=== PATIENT | female | born 1950 | race Caucasian/White ===

== ENCOUNTER 2016-07-26 10:24 | Outpatient (CLI) ==
[2014-09-29 16:18] VITALS: BMI 31.6
[2016-07-26 13:49] LABS: BASOPHILS % (AUTO) 0.5 % (0.0-3.0); EOSINOPHILS # (AUTO) 0.5 K/ul (0.0-0.7); HEMATOCRIT 39.9 % (37.0-47.0); HEMOGLOBIN 12.9 g/dl (12.0-16.0); IMMATURE GRANULOCYTE % (AUTO) 0.1 % (0.0-5.0); LYMPHOCYTES # (AUTO) 3.3 K/uL (0.60-3.4); LYMPHOCYTES % (AUTO) 40.4 (10.0-50.0); MEAN CORPUSCULAR HEMOGLOBIN 28.4 pg (27.0-31.0); MEAN CORPUSCULAR HGB CONC 32.3 (31.8-35.4); MEAN CORPUSCULAR VOLUME 87.7 fl (81.0-99.0); MONOCYTES # (AUTO) 0.6 K/uL (0.4-2.0); MONOCYTES % (AUTO) 7.2 (0-10); NEUTROPHILS # (AUTO) 3.7 K/ul (2.0-6.9); NEUTROPHILS % (AUTO) 45.8; PLATELET COUNT 336 10^3/uL (140-440); RED BLOOD COUNT 4.55 10^6/ul (4.20-5.40); WHITE BLOOD COUNT 8.17 K/ul (4.6-10.2)
[2016-07-26 14:04] LABS: BILIRUBIN,URINE Negative (NEGATIVE); KETONES,URINE Negative (NEGATIVE); LEUKOCYTE ESTERASE ,URINE Negative (NEGATIVE); NITRITE,URINE Negative (NEGATIVE); PROTEIN,URINE Negative (NEGATIVE); URINE, BLOOD Negative (NEGATIVE)
[2016-07-26 14:05] LABS: ALBUMIN 3.3 g/dL (3.4-5.0); ALBUMIN/GLOBULIN RATIO 0.77; ANION GAP 14.2; BILIRUBIN,TOTAL 0.26 mg/dL (0.00-1.20); BUN/CREATININE RATIO 32.95; CALCIUM 9.7 mg/dL (8.2-10.2); CHOL/HDL RATIO 3.1 (4.5-5.5); CREATININE 0.88 mg/dL (0.60-1.30); POTASSIUM 4.2 mmol/L (3.5-5.10); TOTAL PROTEIN 7.6 g/dL (5.8-8.1)
[2016-07-26 14:17] LABS: ADD URINE MICROSCOPIC NO
== END 2016-07-26 10:25 | disposition home or self-care (01) ==
LOC: LAB 10:24
PROVIDERS: ATTEND General Practice
DX: E10.51 Type 1 diabetes mellitus with diabetic peripheral angiopathy without gangrene (principal); E10.69 Type 1 diabetes mellitus with other specified complication; I10 Essential (primary) hypertension; Z78.9 Other specified health status; Z79.899 Other long term (current) drug therapy
CPT/HCPCS: 36415; 80053; 80061; 81001; 83036; 85025

== ENCOUNTER 2016-08-05 13:38 | Outpatient (CLI) ==
[2014-09-29 16:18] VITALS: BMI 31.6
--- NOTE | 2016-08-08 08:47 | MAMMO ---
EXAM: Bilateral digital screening mammogram History: Screening Comparison: Bilateral mammogram 08/03/2015 Findings: MLO and CC views of bilateral breasts demonstrate predominately fatty replaced breast par enchyma. Stable benign bilateral vascular calcifications. There are no dominant masses, no suspici ous microcalcifications and no architectural distortions Impression: Benign stable mammogram. Recommend followup routine screening mammography in 1 year. BIRADS 2
== END 2016-08-05 13:39 | disposition home or self-care (01) ==
LOC: RAD 13:38
PROVIDERS: ATTEND General Practice
DX: Z12.31 Encounter for screening mammogram for malignant neoplasm of breast (principal)

== ENCOUNTER 2016-10-21 11:05 | Outpatient (CLI) ==
[2014-09-29 16:18] VITALS: BMI 31.6
[2016-10-21 13:09] LABS: BASOPHILS # (AUTO) 0.1 K/uL (0-0.2); BASOPHILS % (AUTO) 0.8 % (0.0-3.0); EOSINOPHILS # (AUTO) 0.4 K/ul (0.0-0.7); HEMATOCRIT 39.8 % (37.0-47.0); HEMOGLOBIN 12.9 g/dl (12.0-16.0); IMMATURE GRANULOCYTE % (AUTO) 0.3 % (0.0-5.0); LYMPHOCYTES # (AUTO) 3.3 K/uL (0.60-3.4); LYMPHOCYTES % (AUTO) 41.4 (10.0-50.0); MEAN CORPUSCULAR HEMOGLOBIN 28.3 pg (27.0-31.0); MEAN CORPUSCULAR HGB CONC 32.4 (31.8-35.4); MEAN CORPUSCULAR VOLUME 87.3 fl (81.0-99.0); MONOCYTES # (AUTO) 0.5 K/uL (0.4-2.0); MONOCYTES % (AUTO) 6.3 (0-10); NEUTROPHILS # (AUTO) 3.7 K/ul (2.0-6.9); NEUTROPHILS % (AUTO) 46.2; PLATELET COUNT 322 10^3/uL (140-440); RED BLOOD COUNT 4.56 10^6/ul (4.20-5.40); WHITE BLOOD COUNT 7.94 K/ul (4.6-10.2)
[2016-10-21 13:11] LABS: BILIRUBIN,URINE Negative (NEGATIVE); KETONES,URINE Negative (NEGATIVE); LEUKOCYTE ESTERASE ,URINE Negative (NEGATIVE); NITRITE,URINE Negative (NEGATIVE); PH,URINE 5.5 (5-9); PROTEIN,URINE 2+ (NEGATIVE); URINE, BLOOD Negative (NEGATIVE)
[2016-10-21 13:25] LABS: ADD URINE MICROSCOPIC YES
[2016-10-21 13:26] LABS: BACTERIA,URINE TRACE (NOT PRESENT)
[2016-10-21 13:27] LABS: GRANULAR CASTS,URINE 0-2 (NOT PRESENT)
[2016-10-21 13:33] LABS: ALBUMIN 3.2 g/dL (3.4-5.0); ALBUMIN/GLOBULIN RATIO 0.76; ANION GAP 15.2; BILIRUBIN,TOTAL 0.33 mg/dL (0.00-1.20); BUN/CREATININE RATIO 25.51; CALCIUM 9.4 mg/dL (8.2-10.2); CHOL/HDL RATIO 3.6 (4.5-5.5); CREATININE 0.98 mg/dL (0.60-1.30); POTASSIUM 4.2 mmol/L (3.5-5.10); TOTAL PROTEIN 7.4 g/dL (5.8-8.1)
== END 2016-10-21 11:06 | disposition home or self-care (01) ==
LOC: LAB 11:05
PROVIDERS: ATTEND General Practice
DX: E10.51 Type 1 diabetes mellitus with diabetic peripheral angiopathy without gangrene (principal); E10.69 Type 1 diabetes mellitus with other specified complication; I10 Essential (primary) hypertension; Z79.899 Other long term (current) drug therapy
CPT/HCPCS: 36415; 80053; 80061; 81001; 83036; 85025

== ENCOUNTER 2017-02-22 12:27 | Outpatient (CLI) | payer OTHER ==
[2014-09-29 16:18] VITALS: BMI 31.6
[2017-02-22 12:38] LABS: BASOPHILS # (AUTO) 0.1 K/uL (0-0.2); BASOPHILS % (AUTO) 0.9 % (0.0-3.0); EOSINOPHILS # (AUTO) 0.7 K/ul (0.0-0.7); EOSINOPHILS % (AUTO) 8.1 % (0.0-7.0); HEMATOCRIT 40.8 % (37.0-47.0); HEMOGLOBIN 13.3 g/dl (12.0-16.0); IMMATURE GRANULOCYTE % (AUTO) 0.2 % (0.0-5.0); LYMPHOCYTES # (AUTO) 3.3 K/uL (0.60-3.4); LYMPHOCYTES % (AUTO) 38.7 (10.0-50.0); MEAN CORPUSCULAR HEMOGLOBIN 28.5 pg (27.0-31.0); MEAN CORPUSCULAR HGB CONC 32.6 (31.8-35.4); MEAN CORPUSCULAR VOLUME 87.6 fl (81.0-99.0); MONOCYTES # (AUTO) 0.5 K/uL (0.4-2.0); MONOCYTES % (AUTO) 5.5 (0-10); NEUTROPHILS % (AUTO) 46.6; PLATELET COUNT 361 10^3/uL (140-440); RED BLOOD COUNT 4.66 10^6/ul (4.20-5.40); WHITE BLOOD COUNT 8.57 K/ul (4.6-10.2)
[2017-02-22 12:50] LABS: ALBUMIN/GLOBULIN RATIO 0.64; ANION GAP 14.9; BILIRUBIN,TOTAL 0.27 mg/dL (0.00-1.20); BUN/CREATININE RATIO 26.04; CALCIUM 9.7 mg/dL (8.2-10.2); CHOL/HDL RATIO 3.6 (4.5-5.5); CREATININE 0.96 mg/dL (0.60-1.30); POTASSIUM 3.9 mmol/L (3.5-5.10); TOTAL PROTEIN 7.7 g/dL (5.8-8.1)
[2017-02-22 12:58] LABS: BILIRUBIN,URINE Negative (NEGATIVE); KETONES,URINE Negative (NEGATIVE); LEUKOCYTE ESTERASE ,URINE Negative (NEGATIVE); NITRITE,URINE Negative (NEGATIVE); PH,URINE 6.5 (5-9); PROTEIN,URINE 3+ (NEGATIVE); URINE, BLOOD 1+ (NEGATIVE)
[2017-02-22 13:04] LABS: ADD URINE MICROSCOPIC YES
== END 2017-02-22 12:28 | disposition home or self-care (01) ==
LOC: LAB 12:27
PROVIDERS: ATTEND General Practice
DX: E10.51 Type 1 diabetes mellitus with diabetic peripheral angiopathy without gangrene (principal); E10.69 Type 1 diabetes mellitus with other specified complication; I10 Essential (primary) hypertension; I73.9 Peripheral vascular disease, unspecified; Z78.9 Other specified health status; Z79.899 Other long term (current) drug therapy
CPT/HCPCS: 36415; 80053; 80061; 81001; 83036; 85025

== ENCOUNTER → 2017-03-07 | Outpatient (POV) ==
[2014-09-29 16:18] VITALS: BMI 31.6
== END ==
LOC: OUTPT 00:01
PROVIDERS: ATTEND Otolaryngology
DX: H91.90 Unspecified hearing loss, unspecified ear (principal)

== ENCOUNTER 2017-05-25 12:31 | Outpatient (CLI) ==
[2014-09-29 16:18] VITALS: BMI 31.6
== END 2017-05-25 12:32 | disposition home or self-care (01) ==
LOC: LAB 12:31
PROVIDERS: ATTEND General Practice
DX: E10.51 Type 1 diabetes mellitus with diabetic peripheral angiopathy without gangrene (principal); E10.69 Type 1 diabetes mellitus with other specified complication; I10 Essential (primary) hypertension; Z79.899 Other long term (current) drug therapy
CPT/HCPCS: 36415; 80053; 80061; 81001; 83036; 85025

== ENCOUNTER 2017-08-08 09:08 | Outpatient (CLI) ==
[2014-09-29 16:18] VITALS: BMI 31.6
--- NOTE | 2017-08-09 11:39 | MAMMO ---
EXAM: Digital screening mammogram with tomosynthesis HISTORY: Screening COMPARISON: 08/05/2016 FINDINGS: Digital MLO and CC views of the right and left breast were performed. Tomosynthesis was p erformed. Computer aided detection was utilized. There are scattered fibroglandular densities. Ther e is no evidence for mass, asymmetry, distortion, or suspicious calcifications in either breast. IMPRESSION: 1. No evidence of malignancy in the right or left breast. 2. Annual screening mammogram is recommended in one year. BIRADS category 1, negative examination
== END 2017-08-08 09:09 | disposition home or self-care (01) ==
LOC: RAD 09:08
PROVIDERS: ATTEND General Practice
DX: Z12.31 Encounter for screening mammogram for malignant neoplasm of breast (principal)
CPT/HCPCS: 77067

== ENCOUNTER 2017-08-25 12:32 | Outpatient (CLI) | payer OTHER ==
[2014-09-29 16:18] VITALS: BMI 31.6
== END 2017-08-25 12:33 | disposition home or self-care (01) ==
LOC: FCC-LAB 12:32
PROVIDERS: ATTEND General Practice
DX: E10.69 Type 1 diabetes mellitus with other specified complication (principal); E10.51 Type 1 diabetes mellitus with diabetic peripheral angiopathy without gangrene; I10 Essential (primary) hypertension; Z79.899 Other long term (current) drug therapy
CPT/HCPCS: 36415; 80053; 80061; 81001; 83036; 85025

== ENCOUNTER 2017-10-10 15:14 | Outpatient (POV) ==
[2014-09-29 16:18] VITALS: BMI 31.6
== END 2017-10-10 17:00 ==
LOC: OUTPT 15:14
PROVIDERS: ATTEND Otolaryngology
DX: R42 Dizziness and giddiness (principal)
CPT/HCPCS: 92557; 92567

== ENCOUNTER 2017-10-12 09:07 | Outpatient (CLI) | payer OTHER ==
[2014-09-29 16:18] VITALS: BMI 31.6
--- NOTE | 2017-10-12 11:13 | CT ---
EXAM: CT internal auditory canals without contrast. HISTORY: Vertigo. COMPARISON: None available. TECHNIQUE: Multiple axial images of the temporal bones were obtained without contrast and were refor matted in the sagittal and coronal planes. FINDINGS: External auditory canals and middle ear cavities are unremarkable. Ossicular chains appea r intact. Tympanic membranes appear intact. The inner ear structures are unremarkable. Internal au ditory canals appear normal. Mastoid air cells are clear. Paranasal sinuses are clear. 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 Examination not optimized for evaluation of intracranial structures. Conside r dedicated brain imaging of the warranted. IMPRESSION: No acute abnormality of the temporal bones.
--- NOTE | 2017-10-12 18:31 | MRI ---
EXAM: Brain and IAC MRI with and without contrast. HISTORY: Vertigo. COMPARISON: CT internal auditory canals without contrast. TECHNIQUE: Multiplanar, multisequence MR images were acquired of the brain with thin sections throug h the internal auditory canals before and after administration of intravenous contrast. FINDINGS: The midline structures are central and there is no cerebellar tonsillar ectopia. There is mild to moderate lateral third ventriculomegaly that is disproportionate to the mild widening of the sulci and cerebellar fissures. No abnormal extra-axial fluid collections are present. The brain parenchyma has no diffusion restriction to suggest acute hypoperfusion or infarction. Ther e is a thin band of periventricular T2 hyperintensity and small T2 hyperintensities are present in th e supratentorial white matter and ana paula compatible with mild supratentorial and moderate pontine leuko malacia. There is a chronic lacuna in the inferior right cerebellum. There is upward bowing of the corpus callosum due to the lateral ventriculomegaly. The pituitary gland is low normal in size with homogeneous contrast enhancement and the infundibulum is midline. 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 There is asymmetric positioning of the patient in the MRI. Allowing for this difference, the right hippocampal head and body is mildly smaller than the left wit hout abnormal signal intensity which is nonspecific. After administration of contrast, there is a pr ominent enhancing vein or small developmental venous anomaly in the right frontal periventricular whi te matter. There is no abnormal contrast enhancement in the internal auditory canals or labyrinthine structures. There is no vascular loop compression of the seventh and eighth nerve complexes at the nerve root entry zones. There are no intraorbital masses. Minor scattered mucosal thickening is present in the ethmoid air c ells bilaterally. There is minor rightward nasal septal deviation. A tiny amount of fluid is presen t in the sphenoid sinus. There is mucosal thickening and a trace of fluid and a minor number of the right mastoid air cells and a few left mastoid air cells. Flow voids are present in the major intracranial arteries and dural venous sinuses. IMPRESSION: 1. No vestibular schwannoma, intracranial hemorrhage or acute cerebral infarct. 2. Mild diffuse cerebral volume loss which is greater centrally and mild supratentorial and moderate pontine leukomalacia. Clinical considerations include chronic ischemic small vessel disease and hyp ertensive encephalopathy.
== END 2017-10-12 09:08 | disposition home or self-care (01) ==
LOC: RAD 09:07
PROVIDERS: ATTEND Otolaryngology
DX: R42 Dizziness and giddiness (principal)
CPT/HCPCS: 36415; 82565

== ENCOUNTER 2017-11-27 09:25 | Outpatient (CLI) ==
[2014-09-29 16:18] VITALS: BMI 31.6
== END 2017-11-27 09:26 | disposition home or self-care (01) ==
LOC: FCC-LAB 09:25
PROVIDERS: ATTEND General Practice
DX: E10.51 Type 1 diabetes mellitus with diabetic peripheral angiopathy without gangrene (principal); E10.69 Type 1 diabetes mellitus with other specified complication; I10 Essential (primary) hypertension; Z78.9 Other specified health status; Z79.899 Other long term (current) drug therapy
CPT/HCPCS: 36415; 80053; 80061; 81001; 83036; 85025; 87086

== ENCOUNTER 2017-12-15 09:20 | Outpatient (CLI) ==
[2014-09-29 16:18] VITALS: BMI 31.6
--- NOTE | 2017-12-15 10:00 | US ---
EXAM: Ultrasound abdomen limited. HISTORY: Cirrhosis. COMPARISON: None available. TECHNIQUE: Abdominal, real time with image documentation: limited (eg, single organ, quadrant, foll ow-up) FINDINGS: The liver demonstrates normal contour with homogeneous echogenicity. There is no intrahep atic biliary dilatation. Echogenic shadowing structures are seen within the gallbladder, the gallbla dder is mildly distended. No gallbladder wall thickening identified. Common duct is not well seen. The visualized portions of the pancreas are unremarkable. IMPRESSION: 1. Cholelithiasis with mild gallbladder distension. No gallbladder wall thickening. 2. No sonographic abnormality of the liver. 3. Poor visualization of the common bile duct.
== END 2017-12-15 09:21 | disposition home or self-care (01) ==
LOC: RAD 09:20
PROVIDERS: ATTEND General Practice
DX: K74.60 Unspecified cirrhosis of liver (principal)

== ENCOUNTER 2018-01-09 08:06 | Outpatient (CLI) ==
[2014-09-29 16:18] VITALS: BMI 31.6
== END 2018-01-09 08:07 | disposition home or self-care (01) ==
LOC: FCC-LAB 08:06
PROVIDERS: ATTEND General Practice
DX: J34.89 Other specified disorders of nose and nasal sinuses (principal); R53.83 Other fatigue; R05 Cough; J02.9 Acute pharyngitis, unspecified
CPT/HCPCS: 87081; 87502; 87651

== ENCOUNTER 2018-02-05 10:39 | Emergency (ER) ==
[2018-02-05 10:50] VITALS: BP 190/90; TEMP 97.5; BMI 32.5
--- NOTE | 2018-02-05 11:57 | DI ---
Exam: Left knee three-view. HISTORY: Fall. Findings: Three images of the left knee are submitted. These demonstrate a mildly impacted intra-ar ticular fracture involving the proximal tibial metaphysis and lateral tibial plateau. The proximal f ibula appears intact. The patella and distal femur appear intact. There are small plantar calcaneal spurs. A small suprapatellar effusion is noted. There is no osseous erosion or radiodense foreign body. Atherosclerotic disease is seen. Mild soft tissue swelling is noted. Impressions: Mildly impacted intra-articular fracture of the proximal tibial metaphysis and lateral tibial plateau. Mild depression of the lateral tibial plateau. Mild patellar spurring. Small suprapatellar effusion.
--- NOTE | 2018-02-05 11:59 | DI ---
Exam: Right shoulder three-view. HISTORY: Fall. Findings: Three images of the right shoulder are submitted. These demonstrate no dislocation. Subt le cortical irregularity is noted in the proximal humeral metaphysis. There is no osseous erosion or radiodense foreign body. No soft tissue calcifications are noted. There is narrowing of the subacr omial space. The adjacent right ribs appear intact and there is no pneumothorax. Atherosclerotic pl aque is seen. No focal soft tissue swelling Impressions: Subtle cortical irregularity in the proximal humeral metaphysis, suspected nondisplaced fracture. If further imaging is clinically indicated, MRI or CT. Narrowing of the subacromial space which can be seen with rotator cuff disease.
--- NOTE | 2018-02-05 12:49 | CT ---
EXAM: CT BRAIN HISTORY: Fall TECHNIQUE: CT brain without intravenous contrast. 5-mm axial sections with Reformations. COMPARISON: None FINDINGS: There is mild generalized atrophy. There is at least mild periventricular and deep white matter low attenuation which although nonspecific is suggestive of chronic microvascular ischemic change. Early basal ganglia calcification. Brain otherwise is unremarkable without evidence of hemorrhage or large vessel distribution recent is chemic infarction. There is no suggestion of acute hydrocephalus or subdural fluid collection. No m ass or mass effect. Cranium has no acute finding. Mastoid processes are aerated. The visualized paranasal sinuses are clear. IMPRESSION: No acute intracranial process or skull fracture.
--- NOTE | 2018-02-05 12:50 | CT ---
EXAM: CT cervical spine without contrast. HISTORY: Initial presentation for neck trauma. COMPARISON: None available. TECHNIQUE: Multiple axial images of the cervical spine were obtained without intravenous contrast. Images were reformatted in the sagittal and coronal planes. FINDINGS: There is normal curvature and alignment. Vertebral body heights are normal. There is sev ere loss of disc height at C5-6 with sustained disc osteophyte formation which causes mild central ca nal stenosis. Disc heights are otherwise normal. No fracture or subluxation detected. Multiple lev els. Uncovertebral hypertrophy and facet arthropathy cause multilevel neural foraminal narrowing, mo derate at C3-4 on the left and C4-5 bilaterally, and moderate to severe at C5-6 bilaterally. Paraver tebral soft tissues without acute abnormality. Atherosclerotic calcifications are present. Emphysem atous changes present in the lung apices. IMPRESSION: No acute abnormality of the cervical spine.
--- NOTE | 2018-02-05 12:51 | CT ---
EXAM: CT left knee without contrast HISTORY: Injury COMPARISON: None TECHNIQUE: CT left knee performed without intravenous contrast. Coronal and sagittal reformatted im ages obtained. FINDINGS: Bones appear demineralized. There is a comminuted mildly impacted fracture of the proxima l tibial metaphysis with numerous fracture lines present. Fracture is interarticular and extends to involve the lateral tibial plateau as well as the tibial spines and the medial tibial plateau. There is approximately 7 mm depression of the lateral tibial plateau. There is lipohemarthrosis. Small t o moderate lipohemarthrosis. Mild tricompartmental osteoarthritis with joint space narrowing and ost eophyte formation. There is subcutaneous edema about the knee. Atherosclerotic vascular calcification . IMPRESSION: 1. Comminuted interarticular fracture of the proximal tibia as described. Fracture involves the medi al and lateral tibial plateau with approximately 7 mm depression of the lateral tibial plateau. 2. Small to moderate lipohemarthrosis. 3. Mild tricompartmental osteoarthritis. 4. Bones appear demineralized. 5. Subcutaneous edema about the knee.
[2018-02-05] MEDS ORDERED: MORPHINE 4 MG/ML SYRINGE IVP STA (13:43)
[2018-02-05] MEDS ORDERED: ZOFRAN 4 MG/2 ML IVP STA (13:43)
--- NOTE | 2018-02-05 14:14 | ED.PDOC ---
General ED Provider: Dr. YANNI CALLES Chief Complaint: Fall Stated Complaint: fall Time Seen by Physician: 10:50 (seenwith nurse at all times ) Mode of Arrival: Ambulance Information Source: Patient Exam Limitations: No limitations [facility] Nursing and Triage Documentation Reviewed and Agree: Yes Does patient meet sepsis criteria?: No System Inflammatory Response Syndrome: Not Applicable Sepsis Protocol: For patient's 13 years and over: Temp is 96.8 and below OR 101 and greater Pulse >90 BPM Resp >20/minute Acutely Altered Mental Status Are patient's symptoms suggestive of a new infection, such as: -Pneumonia -Skin, Soft Tissue -Endocarditis -UTI -Bone, Joint Infection -Implantable Device -Acute Abdominal Infection -Wound Infection -Meningitis -Blood Stream Catheter Infection -Unknown Trauma/Injury Complaint Exam - Trauma Complaint/Exam Location of Pain or Injury: Reports: RUE (shoulder ), LLE (knee ) Mechanism of Injury: Reports: Fall Onset/Duration: today Symptoms Are: Still present Timing of Treatment: Immediate Initial Severity: Moderate Current Severity: Moderate (pt tripped and fell NO SYNCOPE RELATED ISSUES NO L.OC SUSTAINED A POSTERIOR SCALP WOUND) Alleviating: Reports: None Associated Signs and Symptoms: Denies: LOC, Confusion, Memory loss, Lethargy, Vomiting, Bleeding, Bruising, Swelling, Extremity disuse, Painful respiration, Hoarseness, Dysphagia, Hemoptysis, Significant blood loss Related History: Reports: Similar episode : No Nexus Low Risk Criteria: No post-midline CS tender, No evidence of intoxicat., No Altered LOC, No focal neuro deficit, No distracting injuries Immobilization Removed Post Exam: No Glascow Coma Scale (see protocol): 15 Compartment Syndrome Risk Factors: Present: Pain Differential Diagnoses: Fracture, Sprain, Strain Review of Systems - Review Of Systems Constitutional: Reports: No symptoms Eyes: Reports: No symptoms Ears, Nose, Mouth, Throat: Reports: No symptoms Respiratory: Reports: No symptoms Cardiac: Reports: No symptoms GI: Reports: No symptoms : Reports: No symptoms Musculoskeletal: Reports: No symptoms Skin: Reports: Other (LACERATION SCALP ) Neurological: Reports: No symptoms Endocrine: Reports: No symptoms Hematologic/Lymphatic: Reports: No symptoms All Other Systems: Reviewed and Negative Past Medical History - Past Medical History Previously Healthy: Yes Endocrine: Reports: None Cardiovascular: Reports: None Respiratory: Reports: None Hematological: Reports: None Gastrointestinal: Reports: None Genitourinary: Reports: None Neuro/Psych: Reports: None Musculoskeletal: Reports: None Cancer: Reports: None Last Menstrual Period: N/A - Surgical History General Surgical History: Reports: None - Family History Family History: Reports: None - Social History Smoking Status: Never smoker Hx Substance Use: No Alcohol Screening: None - Immunizations Tetanus Shot up to Date: Yes (October or November 2017) Physical Exam - Physical Exam Appearance: Well-appearing, No pain distress, Well-nourished Eyes: HANSEL, EOMI, Conjunctiva clear ENT: Ears normal, Nose normal, Oropharynx normal Respiratory: Airway patent, Breath sounds clear, Breath sounds equal, Respirations nonlabored Cardiovascular: RRR, Pulses normal, No rub, No murmur GI/: Soft, Nontender, No masses, Bowel sounds normal, No Organomegaly Musculoskeletal: Normal strength, ROM intact, No edema, No calf tenderness Skin: Warm, Dry (1 CM POSTERIOR SCALP LAC NOTED NO F/B ) Neurological: Sensation intact, Motor intact, Reflexes intact, Cranial nerves intact, Alert, Oriented Psychiatric: Affect appropriate, Mood appropriate Interpretation - Radiology Interpretation Radiology Interpretation By: Radiologist Radiology Results: Positive (POSTIVE FOR KNEE FRACTURE NORMAL BRAIN AND C/SPINE) Exam Interpreted: CT Scan Physician Notification - Case Discussed Physician Notified: ROBINSON AVINA Time of Notification: 14:17 (FILMS OF THE KNEE WAS PUSHED THROUGH BY MY PHONE PT APPROVED THIS TRANSMISSION COMFORT PRESENT DURING THE PT'S APPROVAL TO PUSH XRAYS ) Critical Care Note - Critical Care Note Total Time (mins): 0 Course - Course Orders, Labs, Meds: Orders Category Date Time Status Morphine Sulfate [Morphine 4 mg/ml Syringe] MEDS 02/05/18 13:43 Discontinued 4 mg IVP ONCE STA Ondansetron HCl/Pf [Zofran 4 mg/2 ml] MEDS 02/05/18 13:43 Discontinued 4 mg IVP ONCE STA CT CERVICAL SPINE W/O CONTRAST Stat RADS 02/05/18 10:[address] HEAD W/O CONTRAST Stat RADS 02/05/18 10:[address] KNEE LEFT WITHOUT CONTRAST Stat RADS 02/05/18 11:33 Completed SHOULDER, RIGHT MIN 2V Stat RADS 02/05/18 10:54 Completed Medications Discontinued Medications Generic Name Dose Route Start Last Admin Trade Name Freq PRN Reason Stop Dose Admin Morphine Sulfate 4 mg 02/05/18 13:43 02/05/18 13:54 Morphine 4 Mg/Ml Syringe IVP 02/05/18 13:44 4 mg ONCE STA Administration Ondansetron HCl 4 mg 02/05/18 13:43 02/05/18 13:52 Zofran 4 Mg/2 Ml IVP 02/05/18 13:44 4 mg ONCE STA Administration Vital Signs: Temp Pulse Resp BP Pulse Ox 02/05/18 10:40 97.5 F L 90 20 190/90 H 98 Departure - Departure Time of Disposition: 14:18 (STAPPLES WERE NOTIFIED . ) Disposition: TSF SHORT-TRM HOSP Discharge Problem: Comminuted fracture of shaft of tibia Qualifiers: Fracture type: closed Fracture alignment: displaced Laterality: right Instructions: Arthralgia (ED), Knee Pain (ED) Condition: Good Pt referred to PMD for follow-up: Yes IPMP verified?: No Additional Instructions: Please call your Family Physician as soon as possible to schedule a follow-up appointment. Allergies/Adverse Reactions: Allergies [id number] Reductase Inhibitor Allergy (Mild, Unverified 11/29/17 13:17) Unknown Swelling of joints and achiness in muscles levofloxacin [From Levaquin] Adverse Reaction (Unverified 11/29/17 13:17) Home Medications: Ambulatory Orders Hydrochlorothiazide 12.5 mg PO DAILY 09/29/14 Lisinopril [Zestril] 40 mg PO DAILY 09/29/14 Metformin HCl [Glucophage] 1,000 mg PO BID 09/29/14 Diazepam 2 mg PO 2-3XD 10/10/17
== END 2018-02-05 15:15 | disposition short-term general hospital (02) ==
LOC: ED 10:39
DX: S01.01XA Laceration without foreign body of scalp, initial encounter (principal); S82.252A Displaced comminuted fracture of shaft of left tibia, initial encounter for closed fracture; S49.91XA Unspecified injury of right shoulder and upper arm, initial encounter; W01.0XXA Fall on same level from slipping, tripping and stumbling without subsequent striking against object, initial encounter
CPT/HCPCS: 96374; 96375; 99285

== ENCOUNTER 2018-06-29 13:45 | Outpatient (CLI) ==
[2018-06-29 15:41] VITALS: BMI 32.8
== END 2018-06-29 13:46 | disposition home or self-care (01) ==
LOC: RHC-LAB 13:45
PROVIDERS: ATTEND General Practice
DX: R05 Cough (principal)
CPT/HCPCS: 87502; 87651

== ENCOUNTER 2018-06-29 14:29 | Inpatient (IN) ==
[2018-06-29 15:41] VITALS: BMI 32.8
[2018-06-29] MEDS ORDERED: HUMULIN R SUBCUT SCH (20:45)
[2018-06-29] MEDS ORDERED: POTASSIUM CHLORIDE 20 MEQ VIAL IV ONE (21:08)
[2018-06-29] MEDS ORDERED: ROCEPHIN ONE (21:08)
[2018-06-29] MEDS ORDERED: INFUVITE ADULT IV ONE (21:09)
[2018-06-29] MEDS: COZAAR PO SCH (21:28)
[2018-06-29] MEDS: LANTUS SUBCUT SCH (21:29)
[2018-06-29] MEDS: POTASSIUM CHLORIDE 20 MEQ VIAL 20 MEQ, INFUVITE ADULT 10 ML in SODIUM CHLORIDE 1,000 ML IV SCH (21:30)
[2018-06-29] MEDS: ROCEPHIN 2 GM in SODIUM CHLORIDE 100 ML IV SCH (21:31)
--- NOTE | 2018-06-29 21:46 | DI ---
Exam: Two-view chest x-ray. Date: 06/29/2018. Comparison: 08/27/2013. HISTORY: Cough and fever. FINDINGS: There is diffuse osteopenia. There is a retrocardiac infiltrate. There are granulomatous calcifications. Cardiac silhouette is enlarged. The pulmonary vasculature is normal. Impression: Left lower lobe infiltrate suspicious for pneumonia. Recommend clinical correlation. Cardiomegaly.
[2018-06-30] MEDS ORDERED: INFUVITE ADULT IV ONE ×2 (06:48→23:23)
[2018-06-30] MEDS: NORVASC PO SCH (08:37)
[2018-06-30] MEDS: COZAAR PO SCH (08:37)
[2018-06-30] MEDS: POTASSIUM CHLORIDE 20 MEQ VIAL 20 MEQ, INFUVITE ADULT 10 ML in SODIUM CHLORIDE 1,000 ML IV SCH (08:38)
[2018-06-30] MEDS: INFUVITE ADULT 10 ML in SODIUM CHLORIDE 0.45%-KCL 20 MEQ 1,000 ML IV SCH ×2 (08:40→23:27)
[2018-06-30] MEDS: ROCEPHIN 2 GM in SODIUM CHLORIDE 100 ML IV SCH (09:42)
[2018-06-30] MEDS: HUMULIN R SUBCUT SCH ×2 (11:06→17:22)
[2018-06-30] MEDS ORDERED: CEPACOL SORE THROAT LOZENGE MUCOUSMEMB PRN (11:39)
[2018-06-30] MEDS: ZITHROMAX 500 MG in SODIUM CHLORIDE 250 ML IV SCH (11:41)
[2018-06-30] MEDS: MUCINEX PO SCH ×2 (17:21→21:25)
[2018-06-30] MEDS: LANTUS SUBCUT SCH (21:26)
[2018-07-01] MEDS: NORVASC PO SCH (08:40)
[2018-07-01] MEDS: COZAAR PO SCH (08:40)
[2018-07-01] MEDS: HUMULIN R SUBCUT SCH ×3 (08:41→17:35)
[2018-07-01] MEDS: MUCINEX PO SCH ×2 (08:41→21:01)
[2018-07-01] MEDS: ROCEPHIN 2 GM in SODIUM CHLORIDE 100 ML IV SCH (08:41)
[2018-07-01] MEDS: ZITHROMAX 500 MG in SODIUM CHLORIDE 250 ML IV SCH (10:10)
[2018-07-01] MEDS ORDERED: INFUVITE ADULT IV ONE ×2 (14:13→23:53)
[2018-07-01] MEDS: INFUVITE ADULT 10 ML in SODIUM CHLORIDE 0.45%-KCL 20 MEQ 1,000 ML IV SCH ×3 (14:17→23:57)
[2018-07-01] MEDS: LANTUS SUBCUT SCH (21:02)
[2018-07-02] MEDS: COZAAR PO SCH (08:53)
[2018-07-02] MEDS: NORVASC PO SCH (08:53)
[2018-07-02] MEDS: MUCINEX PO SCH ×2 (08:53→20:30)
[2018-07-02] MEDS: ROCEPHIN 2 GM in SODIUM CHLORIDE 100 ML IV SCH (08:54)
[2018-07-02] MEDS: HUMULIN R SUBCUT SCH ×3 (08:54→17:17)
--- NOTE | 2018-07-02 09:44 | HP ---
DATE OF SERVICE: 06/29/18 CHIEF COMPLAINT: Cough, shortness of breath and fatigue/weakness. SOURCE OF HISTORY: The patient. HISTORY OF PRESENT ILLNESS: The patient was seen in the office 06/29/18 complaining of cough, progressive with purulent sputum and shortness of breath with extreme fatigue. She also did complain of headaches. This began some two to three days prior to presentation. The patient at the office was noted to have rales on the left lower base, some hypoxemia. The patient also was slightly tachypneic and she was then advised admission with a diagnosis of pneumonitis, probably left lower lobe versus bronchitis and respiratory failure. PAST PERSONAL HISTORY: The patient had previous total abdominal hysterectomy and BSO for endometrial carcinoma 2005; left knee surgery, 01/2018; colonoscopy spring, endoscopy Spring 2016. Last pap smear unknown. The patient has diabetes mellitus. FAMILY HISTORY: Sister has diabetes mellitus. Mother also has diabetes mellitus. Father had cancer plus COPD. SOCIAL HISTORY: The patient is , resides with her and never did smoke and no alcoholic beverages. MEDICATIONS: (PRIOR TO THIS ADMISSION) Lisinopril 40 mg daily Pravastatin 20 mg at bedtime Amlodipine 10 mg daily Basaglar 10 units subcutaneously at 9 p.m. Humulin R 6 units before each meal ALLERGIES: Stated allergy to Statins but this patient is taking Pravastatin without any problems, Latex and Levaquin. REVIEW OF SYSTEMS: CONSTITUTIONAL: No fever, no chills but has extreme fatigue. [employer]: The patient has headache but claims to be sinus headaches. No ataxia. No syncopal episode and no seizure event. VISUAL: Negative. AUDITORY: No symptoms. RESPIRATORY: Cough with purulent sputum. No hemotpysis. She has shortness of breath. She has nasal congestion. CARDIOVASCULAR: Denies any chest pain or chest tightness or palpitation. GASTROINTESTINAL: Appetite has decreased but no nausea, no anorexia or vomiting. Denies any abdominal pain or diarrhea. GENITOURINARY: Denies any pain on urination but does have frequency. MUSCULOSKELETAL: The patient has problems with knee that had been operated. No significant pain that requires medication. INTEGUMENT: No rash, pururitus or ecchymosis. ENDOCRINE: Some polyuria but not polydipsia. This patient is diabetic and is on insulin. HEMATOLOGY: No symptoms. PSYCHIATRIC: Affect is normal. PHYSICAL EXAMINATION: GENERAL: 67-year-old female admitted to the hospital because of shortness of breath, cough, rales on the right lower base. VITAL SIGNS: Temperature 98.4, pulse 86, respiratory rate 20, oxygen saturation 94 on room air, blood pressure 170/65. HEAD: Unremarkable. Scalp: No active dermatitis. Face is symmetrical and equal with no facial weakness. The patient denies any significant tenderness to palpation and/or pressure in the frontal or maxillary sinus areas. EYES: Pupils equal/reactive to light. Conjunctivae somewhat pale. Sclerae not icteric. MOUTH: Unremarkable. THROAT: No inflammation, no tumors, no exudate. NECK: No masses. No bruit. No tenderness. No rigidity. CHEST: Symmetrical and equal with good expansion. LUNGS: Breath sounds are heard on both sides, somewhat diminished. Rales in the left lower base. HEART: Audible and regular with good tones. No murmurs. ABDOMEN: Soft with no remarkable tenderness. No guarding. Bowel sounds are active. No masses palpable. EXTERNAL GENITALIA: Not examined. PELVIC/RECTAL: Exam not performed. LOWER EXTREMITIES: Symmetrical and equal with no edema. Pedal pulses present but diminished volume. UPPER EXTREMITIES: Symmetrical and equal. ASSESSMENT: 1. LEFT LOWER LOBE PNEUMONITIS. 2. RESPIRATORY FAILURE SECONDARY TO #1. 3. HYPERTENSION, UNCONTROLLED. 4. DIABETES MELLITUS, CONTROL UNDETERMINED. 5. MODERATE ANEMIA. 6. ELEVATED BMI. TIME SPENT: GREATER THAN 65 MINUTES MTDD
--- NOTE | 2018-07-02 09:50 | PN ---
DATE OF SERVICE: 06/30/18 SUBJECTIVE: The patient is alert and feeling some better but still looks sick. She now has rales on both lung [place]. Chest x-ray yesterday indicated left lower lobe pneumonitis or infiltrate. WBC was normal. The atrial blood gasses revealed severe hypoxemia, respiratory failure. The Procalcitonin is less than 0.05. This is most likely viral pneumonitis. HEART: Audible and regular with good tones. VITAL SIGNS: Temperature 99.1, pulse 79, blood pressure 149/73, respiratory rate 14, oxygen saturation at 2 liters of oxygen. The patient is encouraged to take a deep breath from time to time. The patient is receiving Rocephin 2 grams daily and Zithromax 500mg daily. Mucinex 1,200 long acting will be prescribed. MTDD
--- NOTE | 2018-07-02 09:55 | PN ---
DATE OF SERVICE: 07/01/18 SUBJECTIVE: The patient is alert, oriented and she is feeling better. She was asking me if she would be going home tomorrow and I told her I don't know. VITALS: Temperature 98.7, 98.8 earlier, Pulse 81, blood pressure 160/68, respiratory rate 18, oxygen saturation 94 with 2 liters of oxygen. LUNGS: Less amount of rales now. They are much much lower at the bases and no expiratory wheezing. HEART: Audible and regular with good tones CBC has normal WBC, lower hgb and hct probably needing some iron, MCV 83.5, MCH 26.1. RDW 15.1. Atrial blood gasses yesterday severe hypoxemia. Blood sugar today is 156.5, GFR 50 down from yesterday lower total protein and albumin. GENERAL CONDITION: Improved. MTDD
[2018-07-02] MEDS: ZITHROMAX 500 MG in SODIUM CHLORIDE 250 ML IV SCH (10:28)
[2018-07-02] MEDS ORDERED: INFUVITE ADULT IV ONE ×3 (10:50→22:39)
[2018-07-02] MEDS: INFUVITE ADULT 10 ML in SODIUM CHLORIDE 0.45%-KCL 20 MEQ 1,000 ML IV SCH ×2 (12:54→22:43)
[2018-07-02] MEDS: LANTUS SUBCUT SCH (20:31)
[2018-07-03] MEDS ORDERED: ROCEPHIN 2 GM in SODIUM CHLORIDE 50 ML IV STA (06:39)
[2018-07-03] MEDS: MUCINEX PO SCH ×2 (08:03→20:56)
[2018-07-03] MEDS: COZAAR PO SCH ×2 (08:03→20:56)
[2018-07-03] MEDS: NORVASC PO SCH (08:03)
[2018-07-03] MEDS: HUMULIN R SUBCUT SCH ×3 (08:04→17:07)
[2018-07-03] MEDS ORDERED: INFUVITE ADULT IV ONE ×2 (10:22→20:26)
[2018-07-03] MEDS: INFUVITE ADULT 10 ML in SODIUM CHLORIDE 0.45%-KCL 20 MEQ 1,000 ML IV SCH ×2 (10:28→20:54)
--- NOTE | 2018-07-03 14:59 | DI ---
EXAM: CHEST FRONTAL AND LATERAL VIEWS HISTORY: Shortness of breath. COMPARISON: 06/29/2018 FINDINGS: Upper limit normal heart size is stable. There is probable mild atherosclerotic disease. Small left pleural effusion is new. Adjacent atelectasis versus pneumonia is mild. Lungs are other [place] clear. IMPRESSION: 1. Left pleural effusion with some adjacent consolidation.
[2018-07-03] MEDS: LANTUS SUBCUT SCH (20:55)
[2018-07-04] MEDS: INFUVITE ADULT 10 ML in SODIUM CHLORIDE 0.45%-KCL 20 MEQ 1,000 ML IV SCH ×3 (06:21→18:19)
[2018-07-04] MEDS ORDERED: INFUVITE ADULT IV ONE (06:36)
[2018-07-04] MEDS ORDERED: ROCEPHIN 2 GM in SODIUM CHLORIDE 50 ML IV SCH (09:00)
[2018-07-04] MEDS: MUCINEX PO SCH (09:34)
[2018-07-04] MEDS: NORVASC PO SCH (09:34)
[2018-07-04] MEDS: COZAAR PO SCH (09:34)
[2018-07-04] MEDS: HUMULIN R SUBCUT SCH ×3 (09:35→17:12)
[2018-07-04 14:31] VITALS: BP 157/62; TEMP 98.4
--- NOTE | 2018-09-24 10:38 | DS ---
DATE OF SERVICE: 07/04/18 PATIENT IDENTIFICATION: 69-year-old female was seen at the office because of cough, fatigue and shortness of breath. She also mentioned a purulent sputum. She complains of some headache and extreme fatigue. The examination revealed an individual who is alert but looking sick and tired, no life very much and with rales in the left lower base. She was tachypneic. Her oxygen saturation at the office was borderline 90. She was advised admission with the probable diagnosis of pneumonia and respiratory failure secondary to #1. Also has diabetes mellitus on insulin. Her medications are Lisinopril 40 mg daily, Pravastatin 20 mg at bedtime, Amlodipine 10 mg daily, Basaglar 10 units subcutaneously at 9 p.m., Humulin R 6 units before each meal. The patient claimed to be allergic to statin but she is taking Pravastatin. She is also allergic to Lasix and Levofloxacin. Chest x-ray indicated left lower lobe infiltrate suspicious for pneumonia. X- ray finding equals the physical findings. Labs showed a normal WBC times three. Arterial blood gases dismal. Oxygen saturation 85, pH 7.425, pc02 39, p02 48, HC03 25.6, total c02 27, base excess 1, FI02 21% . Arterial blood gases done on 06/30/18. Chemistry showed elevated blood sugar 287.7, hemoglobin A1C 9.10. Labs showed normal WBC times three, moderate anemia and low MCH, borderline MCV. Initial blood sugar was elevated on presentation but subsequent blood sugar on 07/01 was 156, on 07/03 was 204. Total protein was below normal as well as the albumin. Liver enzymes were normal. Urinalysis 3+ protein, 1+ blood, negative nitrite, 0-2 RBC, no squamous epithelium. Wound culture was negative after 5 days. Urine culture no growth initially to scant growth. Normal juventino. No change after 48 hours. The patient's medication before hospital admission: Lisinopril 40 mg daily, Pravastatin 20 mg, Amlodipine 10 mg, Basaglar 10 units at bedtime, Novolin R 6 units before each meal or with meal. The patient was continued on her insulin as well as the Lisinopril and Pravastatin. She was given Ceftriaxone 2 gm intravenously daily and Mucinex 1200 mg twice a day. Also was given Cepacol lozenges to reduce the cough. The patient's appetite has improved and consumed 100% of meals on 06/30/18. She had more or less the same appetite on 07/01. On 07/02 the patient had 100% breakfast, 100% lunch, 75% supper, 50% snack. On 07/03 Her appetite remained quite well with 100% breakfast, 75% lunch, 75% supper, 100% snack. The patient continued to improve and her wellbeing had improved. Blood pressure slightly elevated and remained slightly elevated throughout the hospital stay. The patient did spike a low grade temperature on the day of admission and also the early part of the next day. The patient at time of discharge is alert, ambulatory, feeling better, more cheerful. Vital signs 07/04/18 at 2 p.m. showed a temperature of 98.4, pulse 78, blood pressure 157/62, respiratory rate 16, oxygen saturation 97 at 2L. Lungs have fewer rales at the left lower base. Heart is audible with good tones and regular. Repeat chest x-ray showed persistent pneumonitis left lower lobe with some small pleural effusion. The patient at discharge is prescribed Omnicef 300 mg capsule twice a day for five days, Losartan 50 mg twice a day instead of Lisinopril, Amlodipine 10 mg daily and resume the insulin, Basaglar 10 units at bedtime and Novolin R 6 units at mealtime and Pravastatin 20 mg daily. She was advised to stop the Diazepam/Hydrochlorothiazide 12.5 mg daily and Hydrocodone/ Tylenol. She is to get plenty of rest at home and short period of exercises several times a day. She is to see me in the office in about one week or before if there are any concerns. FINAL DIAGNOSES: 1. LEFT LOWER LOBE PNEUMONITIS. 2. RESPIRATORY FAILURE SECONDARY TO #1 IMPROVED. 3. DIABETES MELLITUS, UNCONTROLLED. 4. HYPERTENSION, UNCONTROLLED. 5. ELEVATED BMI 32.8. 6. HISTORY OF ENDOMETRIAL CARCINOMA STATUS POST JAYSHREE, BSO. 7. MODERATE ANEMIA. PROGNOSIS: GUARDED. TIME SPENT: GREATER THAN 30 MINUTES MTDD
--- NOTE | 2018-09-24 10:42 | PN ---
DATE OF SERVICE: 07/02/18 SUBJECTIVE: The patient today is alert and feeling better. Temperature is upper normal 99, pulse 73, blood pressure 145/70, respiratory rate 20 and oxygen saturation listed as room air 97%. No labs today. Appetite remained quite well. LUNGS: Still has rales of the left base, no wheezing. HEART: Audible and regular and no longer tachycardic. ABDOMEN: Soft with no remarkable tenderness. Bowel sounds are active The patient will be continued on 2mg of Rocephin intervenously daily. CONDITION: Improved. MTDD
--- NOTE | 2018-09-24 10:45 | PN ---
DATE OF SERVICE: 07/03/18 SUBJECTIVE: The patient today is alert, oriented times four with movement of all extremities and in good spirits. Claimed that she is feeling better and did much better. Temperature is 98.5 orally, pulse 64, blood pressure 164/66, respiratory rate 16, oxygen saturation 95 at room air. LUNGS: Still has few rales of the bases but much less than admission. No wheezing HEAR: Audible and regular with good tones. ABDOMEN: Unremarkable The patient are 100% of breakfast, 75% of lunch, 75% supper and 100% of snack. This patient also had received Zithromax 500mg for three days. The patient most likely will be discharged tomorrow. DEMETRIUSD
== END 2018-07-04 18:30 | disposition home or self-care (01) | DRG 189 ==
LOC: MEDSURG B 14:29
PROVIDERS: ADMIT General Practice; ATTEND General Practice
DX: J96.90 Respiratory failure, unspecified, unspecified whether with hypoxia or hypercapnia (principal); E11.65 Type 2 diabetes mellitus with hyperglycemia; I16.0 Hypertensive urgency; D64.9 Anemia, unspecified; R05 Cough; R06.02 Shortness of breath; R53.1 Weakness
CPT/HCPCS: 36415; 80053; 81001; 82803; 82962; 83036; 84145; 85025; 87040; 87070; 94761; 99223; 99231; 99232; 99239

== ENCOUNTER 2018-07-10 14:34 | Outpatient (CLI) ==
--- NOTE | 2018-07-10 15:38 | DI ---
EXAM: Two views of the chest. History: Follow-up pneumonia Comparison: Chest radiograph 07/03/2018 Findings: Heart is borderline enlarged. Persistent but slightly improving left basilar infiltrate a nd persistent small left pleural effusion. No pneumothorax. No acute osseous abnormalities. Impression: Persistent but slightly improving left basilar pneumonia and persistent small left pleur al effusion. Continued follow-up is recommended to assure resolution.
== END 2018-07-10 14:35 | disposition home or self-care (01) ==
LOC: RAD 14:34
PROVIDERS: ATTEND General Practice
DX: J18.1 Lobar pneumonia, unspecified organism (principal)

== ENCOUNTER 2018-08-09 09:57 | Outpatient (CLI) ==
--- NOTE | 2018-08-10 12:12 | MAMMO ---
EXAM: Digital screening mammogram with tomosynthesis HISTORY: Screening COMPARISON: 08/08/2017 FINDINGS: Digital MLO and CC views of the right and left breast were performed. Tomosynthesis was performed. Computer aided detection utilized. There are scattered fibroglandular densities. There is no evidence for mass, asymmetry, distortion, or suspicious calcifications in either breast. IMPRESSION: 1. No evidence of malignancy in the right or left breast. 2. Annual screening mammogram is recommended in one year. BIRADS category 1, negative examination
== END 2018-08-09 09:58 | disposition home or self-care (01) ==
LOC: RAD 09:57
PROVIDERS: ATTEND General Practice
DX: Z12.31 Encounter for screening mammogram for malignant neoplasm of breast (principal); E55.9 Vitamin D deficiency, unspecified
CPT/HCPCS: 36415; 82306

== ENCOUNTER 2018-08-09 16:26 | Outpatient (CLI) | END 2018-08-09 16:27 | disposition home or self-care (01) | LOC: RHC-LAB 16:26 | PROVIDERS: ATTEND General Practice | DX: E55.9 Vitamin D deficiency, unspecified (principal) | CPT/HCPCS: 36415; 82306 ==

== ENCOUNTER 2018-10-03 14:03 | Outpatient (CLI) | END 2018-10-03 14:04 | disposition home or self-care (01) | LOC: LAB 14:03 | PROVIDERS: ATTEND Nurse Practitioner Family | DX: E55.9 Vitamin D deficiency, unspecified (principal); E83.51 Hypocalcemia; M81.0 Age-related osteoporosis without current pathological fracture; Z78.0 Asymptomatic menopausal state; Z86.39 Personal history of other endocrine, nutritional and metabolic disease | CPT/HCPCS: 36415; 80053; 82306; 83735; 83970; 84100 ==

== ENCOUNTER 2018-10-04 08:10 | Outpatient (CLI) | END 2018-10-04 08:11 | disposition home or self-care (01) | LOC: RHC-LAB 08:10 | PROVIDERS: ATTEND General Practice | DX: E55.9 Vitamin D deficiency, unspecified (principal); E10.69 Type 1 diabetes mellitus with other specified complication; I10 Essential (primary) hypertension; E10.51 Type 1 diabetes mellitus with diabetic peripheral angiopathy without gangrene; Z00.00 Encounter for general adult medical examination without abnormal findings; Z79.899 Other long term (current) drug therapy | CPT/HCPCS: 36415; 80053; 80061; 81001; 83036; 85025 ==

== ENCOUNTER 2018-10-12 09:07 | Outpatient (CLI) | END 2018-10-12 09:08 | disposition home or self-care (01) | LOC: RHC-LAB 09:07 | PROVIDERS: ATTEND General Practice | DX: R10.9 Unspecified abdominal pain (principal) | CPT/HCPCS: 36415; 85651 ==

== ENCOUNTER 2018-10-16 09:38 | Outpatient (CLI) | END 2018-10-16 09:39 | disposition home or self-care (01) | LOC: LAB 09:38 | PROVIDERS: ATTEND General Practice | DX: E87.6 Hypokalemia (principal) | CPT/HCPCS: 36415; 80053 ==

== ENCOUNTER 2018-10-18 13:10 | Outpatient (CLI) ==
[2018-10-18 14:24] VITALS: BMI 29.2
== END 2018-10-18 13:11 | disposition home or self-care (01) ==
LOC: DIETCN 13:10
PROVIDERS: ATTEND General Practice
DX: E11.69 Type 2 diabetes mellitus with other specified complication (principal)

== ENCOUNTER 2018-11-08 10:37 | Inpatient (IN) ==
[2018-11-08 11:05] VITALS: BMI 28.0
[2018-11-08] MEDS ORDERED: VISTARIL INJ IM PRN (11:51)
[2018-11-08] MEDS ORDERED: NITROSTAT SL PRN (11:51)
[2018-11-08] MEDS ORDERED: ATROPINE SULFATE PFS IVP PRN (11:51)
[2018-11-08] MEDS ORDERED: TYLENOL PO PRN (11:51)
[2018-11-08] MEDS ORDERED: EPSOM SALT TP STA (12:24)
--- NOTE | 2018-11-08 15:50 | DI ---
EXAM: Three views of the left foot. History: Left foot pain and cellulitis. Findings: Osteopenia. Diffuse subcutaneous edema. Posterior soft tissue calcifications measuring 1 .5 cm in the region of the distal Achilles tendon. Atherosclerotic vascular calcifications. There i s periostitis or soft tissue calcification seen along the medial side of the hind foot Impression: 1. No acute osseous abnormality. 2. Soft tissue calcification or periostitis along the medial side of the hind foot. Osteomyelitis c annot be excluded. Recommend correlation with MRI or nuclear medicine study to evaluate for osteomye litis. 3. Diffuse subcutaneous edema. 4. Other findings as detailed above
[2018-11-08] MEDS: HUMULIN R SUBCUT SCH (17:41)
[2018-11-08] MEDS ORDERED: NON-FORMULARY MEDICATION (Losartan Potassium [Cozaar] 50 MG) PO SCH (21:00)
[2018-11-08] MEDS ORDERED: LANTUS SUBCUT SCH (21:00)
[2018-11-08] MEDS ORDERED: LEVEMIR SUBCUT STA (21:06)
[2018-11-08] MEDS ORDERED: MAXIPIME 2 GM IV ONE (21:10)
[2018-11-08] MEDS ORDERED: LEVEMIR SUBCUT ONE (21:11)
[2018-11-08] MEDS: MAXIPIME IV SCH (21:13)
[2018-11-08] MEDS: D5W IV SCH (21:13)
[2018-11-08] MEDS: PRAVACHOL PO SCH (21:15)
[2018-11-08] MEDS: COZAAR PO SCH (21:15)
[2018-11-08] MEDS: OXYCODONE PO PRN (22:28)
[2018-11-09] MEDS: OXYCODONE PO PRN ×3 (04:47→21:38)
[2018-11-09] MEDS ORDERED: MAXIPIME 2 GM IV ONE (05:00)
[2018-11-09] MEDS: MAXIPIME IV SCH ×3 (05:09→20:36)
[2018-11-09] MEDS: D5W IV SCH ×3 (05:09→20:36)
[2018-11-09] MEDS: NORVASC PO SCH (08:55)
[2018-11-09] MEDS: COZAAR PO SCH ×2 (08:55→20:35)
[2018-11-09] MEDS: ASPIRIN EC PO SCH (08:55)
[2018-11-09] MEDS: EPSOM SALT TP SCH ×3 (08:59→20:37)
[2018-11-09] MEDS ORDERED: INSULIN GLARGINE HUM REC ANLOG 15 UNIT SQ SCH (09:00)
[2018-11-09] MEDS ORDERED: EPSOM SALT TP SCH (09:00)
[2018-11-09] MEDS ORDERED: [UNRECOGNIZED DRUG - OTHER] SQ SCH (09:00)
[2018-11-09] MEDS ORDERED: NON-FORMULARY MEDICATION (Amlodipine Besylate [Amlodipine Besylate] 10 MG) PO SCH (09:00)
[2018-11-09] MEDS: HUMULIN R SUBCUT SCH ×3 (11:17→17:28)
[2018-11-09] MEDS: HYDROCHLOROTHIAZIDE PO SCH (18:30)
[2018-11-09] MEDS ORDERED: LEVEMIR SUBCUT ONE (20:16)
[2018-11-09] MEDS: PRAVACHOL PO SCH (20:36)
[2018-11-09] MEDS: LEVEMIR SUBCUT SCH (20:45)
[2018-11-10] MEDS: MAXIPIME IV SCH ×3 (05:12→20:59)
[2018-11-10] MEDS: D5W IV SCH ×3 (05:12→20:59)
[2018-11-10] MEDS: ASPIRIN EC PO SCH (08:13)
[2018-11-10] MEDS: EPSOM SALT TP SCH ×3 (08:14→21:01)
[2018-11-10] MEDS: COZAAR PO SCH ×2 (08:14→20:59)
[2018-11-10] MEDS: OXYCODONE PO PRN ×2 (08:15→21:51)
[2018-11-10] MEDS: HYDROCHLOROTHIAZIDE PO SCH (08:15)
[2018-11-10] MEDS: NORVASC PO SCH (08:15)
[2018-11-10] MEDS: HUMULIN R SUBCUT SCH ×3 (08:16→17:09)
[2018-11-10] MEDS: PRAVACHOL PO SCH (20:59)
[2018-11-10] MEDS: LEVEMIR SUBCUT SCH (20:59)
[2018-11-11] MEDS: MAXIPIME IV SCH ×2 (05:25→13:11)
[2018-11-11] MEDS: D5W IV SCH ×2 (05:25→13:11)
[2018-11-11] MEDS: OXYCODONE PO PRN ×2 (06:02→22:13)
[2018-11-11] MEDS: NORVASC PO SCH (08:40)
[2018-11-11] MEDS: COZAAR PO SCH ×2 (08:40→20:23)
[2018-11-11] MEDS: ASPIRIN EC PO SCH (08:40)
[2018-11-11] MEDS: HYDROCHLOROTHIAZIDE PO SCH (08:41)
[2018-11-11] MEDS: EPSOM SALT TP SCH ×3 (08:41→20:22)
[2018-11-11] MEDS: HUMULIN R SUBCUT SCH ×3 (08:42→17:21)
[2018-11-11] MEDS: LOVENOX SUBCUT SCH (15:45)
[2018-11-11] MEDS ORDERED: VANCOMYCIN 1,000 MG in SODIUM CHLORIDE 200 ML IV SCH (16:00)
[2018-11-11] MEDS ORDERED: POTASSIUM CHLORIDE 20 MEQ VIAL IV ONE (16:35)
[2018-11-11] MEDS ORDERED: INFUVITE ADULT IV ONE (16:36)
[2018-11-11] MEDS ORDERED: VANCOMYCIN ONE (16:36)
[2018-11-11] MEDS ORDERED: VANCOMYCIN 1,000 MG in SODIUM CHLORIDE 250 ML IV SCH (17:00)
[2018-11-11] MEDS: POTASSIUM CHLORIDE 20 MEQ VIAL 20 MEQ, INFUVITE ADULT 10 ML in SODIUM CHLORIDE 1,000 ML IV SCH (17:06)
[2018-11-11] MEDS: PRAVACHOL PO SCH (20:23)
[2018-11-11] MEDS: LEVEMIR SUBCUT SCH (20:23)
[2018-11-12] MEDS ORDERED: DRISDOL PO SCH (09:00)
[2018-11-12] MEDS: OXYCODONE PO PRN (09:17)
[2018-11-12] MEDS: ASPIRIN EC PO SCH (09:17)
[2018-11-12] MEDS: NORVASC PO SCH (09:18)
[2018-11-12] MEDS: COZAAR PO SCH ×2 (09:18→21:32)
[2018-11-12] MEDS: HYDROCHLOROTHIAZIDE PO SCH (09:18)
[2018-11-12] MEDS: HUMULIN R SUBCUT SCH ×3 (09:18→17:08)
[2018-11-12] MEDS: EPSOM SALT TP SCH ×3 (09:19→21:30)
[2018-11-12] MEDS: LOVENOX SUBCUT SCH (09:19)
[2018-11-12] MEDS ORDERED: POTASSIUM CHLORIDE 20 MEQ VIAL IV ONE (09:31)
[2018-11-12] MEDS ORDERED: INFUVITE ADULT IV ONE (09:32)
[2018-11-12] MEDS: POTASSIUM CHLORIDE 20 MEQ VIAL 20 MEQ, INFUVITE ADULT 10 ML in SODIUM CHLORIDE 1,000 ML IV SCH ×2 (11:08→16:30)
[2018-11-12] MEDS ORDERED: VANCOMYCIN 1,000 MG in SODIUM CHLORIDE 250 ML IV SCH (17:00)
[2018-11-12] MEDS: LEVEMIR SUBCUT SCH (21:31)
[2018-11-12] MEDS: PRAVACHOL PO SCH (21:32)
[2018-11-13] MEDS ORDERED: INFUVITE ADULT IV ONE (00:59)
[2018-11-13] MEDS ORDERED: POTASSIUM CHLORIDE 20 MEQ VIAL IV ONE (00:59)
[2018-11-13] MEDS: POTASSIUM CHLORIDE 20 MEQ VIAL 20 MEQ, INFUVITE ADULT 10 ML in SODIUM CHLORIDE 1,000 ML IV SCH (01:09)
[2018-11-13] MEDS: OXYCODONE PO PRN (01:37)
[2018-11-13 05:27] VITALS: TEMP 97.8
[2018-11-13] MEDS: EPSOM SALT TP SCH ×2 (06:20→15:12)
[2018-11-13 07:19] VITALS: BP 134/64
--- NOTE | 2018-11-13 07:22 | PN ---
DATE OF SERVICE: 11/09/18 SUBJECTIVE: Today she is resting in her bed, her is at the bedside. She has been started on Cefepime antibiotics. Wound cultures and blood cultures have been completed on her. She has been instructed to elevate her left lower extremity above the level of the heart. VITAL SIGNS: Temperature 97.8, pulse 69, blood pressure 175/62, respiratory rate 20, O2 saturation 99% on room air. On Telemetry she is running a normal sinus rhythm at 62 beats per minute. Her foot x-ray of left lower extremity revealed no acute osseous abnormality. There was soft tissue calcification or periostitis along the medial side of the hind foot. Osteomyelitis can not be excluded. Recommend correlation with MRI or nuclear medicine study to evaluate for osteomyelitis. Diffused subcutaneous edema. Other findings as detailed per the x-ray. The patient does report that it feels better. She is still having her to take her pain medications every 6 hours. LABS: WBC normal. Hgb and Hct normal, plt count normal. Chemistry panel sodium normal , her potassium normal. BUN 24.1, creatinine 1.03, hgb A1c 7.80. Procalcitonin less than 0.05. Urinalysis Okay. We will continue to follow Mrs. Vaz closely LUNGS: Clear HEART: Regular rate and rhythm LOWER EXTREMITY: Edema and redness and swelling to left lower extremity has improved. There is no longer streaking up that left lower extremity MTDD
[2018-11-13] MEDS: HUMULIN R SUBCUT SCH ×2 (08:39→15:05)
[2018-11-13] MEDS: LOVENOX SUBCUT SCH (08:40)
[2018-11-13] MEDS: ASPIRIN EC PO SCH (08:40)
[2018-11-13] MEDS: COZAAR PO SCH (08:41)
[2018-11-13] MEDS: NORVASC PO SCH (08:41)
[2018-11-13] MEDS: HYDROCHLOROTHIAZIDE PO SCH (08:41)
--- NOTE | 2018-11-13 09:43 | PN ---
DATE OF SERVICE: 11/12/18 SUBJECTIVE: The patient is alert and feeling better. The swelling and redness of the left foot has regressed remarkably. Still is tender but not as exquisite as on admission. The culture times two done on the 4th toe where there an opening with some drainage did show Kocuria Kristinae. Further testing for sensitivity for this bacteria. Another culture will be obtained, same area. This patient not receiving Vancomycin 1,000mg Q 24 hours. The patient's GFR has decreased to 37. She was 53 on admission but the BUN is much higher beginning at 24.1 on admission and it now 34.5. LUNG: Clear. HEART: Audible and regular LOWER EXTREMITIES: No pedal pulses are palpable. We will give some fluids tonight and measure again the renal panel. Half normal saline plus 20mew KCL plus MVI. It should be run at 83cc per minute. We will obtain another blood test in the morning, renal panel. The Vancomycin is discontinue in spite of being in a reduced dose 1 gram every 24 hours because of the decreasing EGFR. The BUN had been rising and not quite clear why it is and this patient's intake IV plus oral is good. She is not dehydrated. Blood pressure is more or less controlled. MTDD
[2018-11-13] MEDS ORDERED: INFUVITE ADULT 10 ML in SODIUM CHLORIDE 0.45%-KCL 20 MEQ 1,000 ML IV SCH (13:00)
--- NOTE | 2018-11-13 15:49 | MRI ---
EXAM: MRI of the left forefoot without contrast COMPARISON: Left foot radiographs 11/08/2018. MRI of the left ankle/hind-foot 10/16/2017. HISTORY: Redness, tenderness and swelling of the left foot. Abnormal x-ray. TECHNIQUE: Multiplanar noncontrast MR images of the left midfoot and forefoot were acquired using a 1.2 Theodora magnet. FINDINGS: There is subcutaneous edema throughout the midfoot and forefoot most pronounced dorsally w hich is nonspecific but may represent cellulitis. No deep soft tissue ulcer identified. No focal dr ainable subcutaneous fluid collection. Mild degenerative changes of the forefoot most pronounced at the first metatarsophalangeal joint as w ell as mild degenerative spurring of the articulations of the midfoot and visualized portions of the ankle/hind-foot with moderately severe joint space narrowing at the navicular cuneiform articulation. Well corticated ossification dorsally at the talonavicular joint which may represent an accessory o ssicle versus sequela old trauma. Please note that the ankle/hind-foot is incompletely assessed in t he region of suspected periosteal abnormality medially along the distal calcaneus is not included in the field of view. Correlation with dedicated MRI of the left ankle/hind-foot is recommended. No enhancing soft tissue mass identified. Intact Lisfranc ligament fibers are identified. Mild diffuse muscle atrophy. Low-level intramuscula r edema related to sequela denervation and/or myositis. No full-thickness tendon tear. IMPRESSION: 1. No acute osseous abnormality at the level of the forefoot. Degenerative changes of the midfoot a nd forefoot as described. Please note that the abnormality described along the medial aspect of the distal calcaneus on recent radiographs is not included in the field of view on imaging of the forefoo t and correlation with dedicated MRI of the ankle/hind-foot is recommended. 2. Subcutaneous edema most pronounced dorsally. No drainable fluid collection. 3. Muscle atrophy. Intramuscular edema related to sequela denervation and/or myositis.
[2018-11-13] MEDS ORDERED: ZYVOX 600 MG in PREMIX 300 ML WATER 1 BAG IV SCH (21:00)
[2018-11-13] MEDS ORDERED: EPSOM SALT TP SCH (21:30)
[2018-11-14] MEDS ORDERED: EPSOM SALT TP SCH (09:00)
--- NOTE | 2018-11-14 13:14 | PN ---
DATE OF SERVICE: 11/11/18 SUBJECTIVE: 68 year old female diabetic was admitted to the hospital because of cellulitis of the left foot with an opening wound in the plantar surface of the 4th toe. The culture was still negative for any growth in the wound. The blood cultures were negative. Blood sugar seems to be adequately controlled with a 4 hour postprandial sugar of above 176 or there about. Swelling and redness has decreased but still painful. The plain x-ray does not indicate any bone destruction. VITAL SIGNS: Temperature 97.5, pulse 78, blood pressure 157/62, respiratory rate 18, oxygen saturation 96% at 2 liters. LUNGS: Clear to auscultation in both sides HEART: Audible and regular with good tones. No murmurs ABDOMEN: Soft and tender. Bowel sounds are active. CONDITION: Stable, infection improved. MTDD
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
--- NOTE | 2018-11-15 10:06 | PN ---
DATE OF SERVICE: 11/10/18 SUBJECTIVE: This patient was admitted because of cellulitis of the left foot. The foot is still red, tender although the tenderness is less. The end break is in the plantar surface of the fourth toe. Wound culture indicates too young to read at this time. Blood cultures are negative. This patient is receiving Cefepime 2 gm every 8 hours. The patient is instructed to elevate her foot above her heart level. Post prandial blood sugar is less than 200 which is acceptable. MTDD
--- NOTE | 2018-11-15 10:18 | PN ---
DATE OF SERVICE: 11/12/18 SUBJECTIVE: The patient is alert, feeling better. The swelling and redness of the left foot has regressed remarkably, still is tender but not as explicit as on admission. The culture times two done on fourth toe where there was an opening with some drainage did show Kocuria Krpetraae, submitted for testing of sensitivity for this bacteria. Another culture will be obtained same area. This patient is now receiving Vancomycin 1000 mg q.24 hours. The patient's GFR has decreased to 37. She was 53 on admission but BUN is much higher beginning at 24.1 on admission and it is now 34.5. Lungs are clear. Heart is audible and regular. No pedal pulses palpable. Will give some fluids tonight and measure again the renal panel. Normal Saline plus 20 KCL plus MVI. It should be run at 83 cc/min. Will obtain another blood test in the morning, renal panel. The Vancomycin is discontinued in spite of being in a reduced dose 1 gm every 24 hours because of the decreasing EGFR. The BUN had been rising and not quite clear why it is since the patient intake IV plus oral is good. She is not dehydrated. Blood pressure is more or less controlled. MTDD
--- NOTE | 2018-12-10 14:31 | DS ---
DATE OF SERVICE: 11/13/18 DISCHARGE DIAGNOSIS: 1. Proteus Mirabilis 2. Cellulitis to the left foot treated with IV antibiotics during hospital course. 3. Diabetes Mellitus type 2 with peripheral vascular disease 4. History of fracture of the left tibial plateau displaced bicondylar fracture with hardware to the left lower extremity 5. Dyslipidemia 6. Hypertension 7. Left lower extremity edema 8. Vitamin D deficiency HOSPITAL COURSE: Mrs. Matt is a pleasant 68 [address] patient of Dr[address] Klein who presented to the office on November 08, 2018 with complaints of left lower extremity pain, swelling and redness as well as drainage between the toes of that left lower extremity. She reports severe left lower extremity pain, swelling and redness it has been present for the last week. She reports that she cut her second toenail approximately one week ago and ended up cutting the entire toenail off. She has been putting Bacitracin on this area. She reports that the redness and pain extents upward into the left foot. She tells me that it is difficult to walk on that foot. She denies any fever or chills. She complaints of throbbing and pin and needles to her left foot. She reports an area of drainage in between the third and fourth toe that is draining. She became concerned and decided to come to the office to be evaluated. She does have a history of diabetes mellitus type 2. I initially had documented this as a type 1 diabetes mellitus but after concurring with the patient she does not have Type 1 diabetes Mellitus, she does have type 2 diabetes mellitus. This is a correction on my part. She does have peripheral arterial disease. She also has a history of a fracture, a left tibial plateau displaced bicondylar fracture and she does have some hardware to the left lower extremity. This is concerning because of the surgical intervention done to that left lower extremity. Because of the redness and drainage the decision was made to admit the patient, obtain cultures of that left lower extremity and do some lab work and see what is going on with that left lower extremity. The patient was admitted inpatient. Epsom salt soaks were ordered to be completely to the left lower extremity as well as cultures and blood cultures and antibiotics would be ordered accordingly after these cultures were obtained. On admission her WBC was normal, hgb 13.1, hct 41.0. Her SED RATE was 82. Her A1c was 7.93, procalcitonin less than 0.05 on admission. Normal potassium of 3.87 on 11/11/18. Her GFR was 40. Urinalysis was okay. During this admission an MRI of the foot was ordered. She did have multiple labs completed. Also after reviewing her admission orders and also an orders throughout the hospital course the Epsom Salt soaks were continued throughout this hospital stay. She was given Vancomycin as well. She was also given Rocephin. Her diabetes was managed throughout the hospital course. MRI of the foot showed no acute osseous abnormality of the level of the forefoot degenerative changes, the mid foot and forefoot as described. Please note the that abnormality described along the medial aspect of the distal calcaneus on recent radiographs is not included in the field of view on imaging of the forefoot and correlation with dedicated MRI of the ankle/hind foot is recommended per radiologist. Subcutaneous edema most pronounced dorsally. No drainable fluid collection is noted. Muscle atrophy is noted intramuscular edema related to sequela denervation and or myositis is also noted. Vital signs at discharge; temperature 97.8, blood pressure 134/64, pulse rate 74, O2 saturation 95% on room air. Normal sinus rhythm at 79 beats per minute. The patient is to be transferred to Transition Care Unit to continue antibiotic prescription of Rocephin to manage the cellulitis of her left lower extremity. We will continue to follow the patient in transition care unit and continue the care of the lower extremity and monitoring of the left lower extremity. TIME SPENT: GREATER THAN 30 MINUTES MTDD
== END 2018-11-13 16:46 | disposition swing bed (61) | DRG 603 ==
LOC: MEDSURG B 10:37
PROVIDERS: ADMIT General Practice; ATTEND General Practice
DX: L03.116 Cellulitis of left lower limb (principal); B96.4 Proteus (mirabilis) (morganii) as the cause of diseases classified elsewhere; E11.51 Type 2 diabetes mellitus with diabetic peripheral angiopathy without gangrene; E78.5 Hyperlipidemia, unspecified; E55.9 Vitamin D deficiency, unspecified; I10 Essential (primary) hypertension; R60.0 Localized edema; Z79.4 Long term (current) use of insulin
CPT/HCPCS: 36415; 80053; 80069; 81001; 82550; 82962; 83036; 84145; 84484; 85025; 85651; 87040; 87070; 87186; 93005; 93010

== ENCOUNTER 2018-11-13 16:49 | Inpatient (IN) ==
[2018-11-13 17:41] VITALS: BMI 26.5
[2018-11-13] MEDS ORDERED: VISTARIL INJ IM PRN (18:04)
[2018-11-13] MEDS: HUMULIN R SUBCUT SCH (18:27)
[2018-11-13] MEDS: COZAAR PO SCH (20:43)
[2018-11-13] MEDS: PRAVACHOL PO SCH (20:43)
[2018-11-13] MEDS: LEVEMIR SUBCUT SCH (20:44)
[2018-11-13] MEDS: ZYVOX 600 MG in PREMIX 300 ML WATER 1 BAG IV SCH (20:44)
[2018-11-13] MEDS ORDERED: EPSOM SALT TP SCH (21:00)
[2018-11-13] MEDS ORDERED: SODIUM CHLORIDE 0.45%-KCL 20 MEQ IV SCH (21:00)
[2018-11-13] MEDS: OXYCODONE PO PRN (22:33)
[2018-11-14] MEDS ORDERED: INFUVITE ADULT IV ONE (05:02)
[2018-11-14] MEDS: INFUVITE ADULT 10 ML in SODIUM CHLORIDE 0.45%-KCL 20 MEQ 1,000 ML IV SCH (05:06)
[2018-11-14] MEDS: COZAAR PO SCH ×2 (08:40→20:12)
[2018-11-14] MEDS: ASPIRIN EC PO SCH (08:40)
[2018-11-14] MEDS: NORVASC PO SCH (08:40)
[2018-11-14] MEDS: HYDROCHLOROTHIAZIDE PO SCH (08:41)
[2018-11-14] MEDS: HUMULIN R SUBCUT SCH ×3 (09:05→17:43)
[2018-11-14] MEDS: LOVENOX SUBCUT SCH (09:06)
[2018-11-14] MEDS: EPSOM SALT TP SCH ×3 (09:07→20:13)
[2018-11-14] MEDS: ZYVOX 600 MG in PREMIX 300 ML WATER 1 BAG IV SCH ×2 (09:08→20:14)
[2018-11-14] MEDS: PRAVACHOL PO SCH (20:12)
[2018-11-14] MEDS: LEVEMIR SUBCUT SCH (20:14)
[2018-11-14] MEDS: OXYCODONE PO PRN (21:31)
[2018-11-15] MEDS: INFUVITE ADULT 10 ML in SODIUM CHLORIDE 0.45%-KCL 20 MEQ 1,000 ML IV SCH (05:33)
[2018-11-15] MEDS: EPSOM SALT TP SCH ×3 (08:27→21:32)
[2018-11-15] MEDS: ZYVOX 600 MG in PREMIX 300 ML WATER 1 BAG IV SCH ×2 (08:28→21:32)
[2018-11-15] MEDS: HUMULIN R SUBCUT SCH ×3 (08:29→18:00)
[2018-11-15] MEDS: LOVENOX SUBCUT SCH (08:29)
[2018-11-15] MEDS: NORVASC PO SCH (08:30)
[2018-11-15] MEDS: COZAAR PO SCH ×2 (08:30→21:33)
[2018-11-15] MEDS: HYDROCHLOROTHIAZIDE PO SCH (08:31)
[2018-11-15] MEDS: ASPIRIN EC PO SCH (08:31)
[2018-11-15] MEDS ORDERED: DRISDOL PO SCH (09:00)
[2018-11-15] MEDS: OXYCODONE PO PRN ×2 (16:19→22:45)
[2018-11-15] MEDS: PRAVACHOL PO SCH (21:33)
[2018-11-15] MEDS: LEVEMIR SUBCUT SCH (21:33)
[2018-11-16] MEDS ORDERED: LINEZOLID IV ONE (07:51)
[2018-11-16] MEDS: EPSOM SALT TP SCH ×3 (08:01→21:30)
[2018-11-16] MEDS: HUMULIN R SUBCUT SCH ×3 (08:01→17:36)
[2018-11-16] MEDS: LOVENOX SUBCUT SCH (08:03)
[2018-11-16] MEDS: ASPIRIN EC PO SCH (08:04)
[2018-11-16] MEDS: NORVASC PO SCH (08:04)
[2018-11-16] MEDS: HYDROCHLOROTHIAZIDE PO SCH (08:04)
[2018-11-16] MEDS: COZAAR PO SCH ×2 (08:04→21:09)
[2018-11-16] MEDS: ZYVOX 600 MG in PREMIX 300 ML WATER 1 BAG IV SCH (08:17)
[2018-11-16] MEDS: ROCEPHIN 2 GM in SODIUM CHLORIDE 50 ML IV SCH (15:18)
[2018-11-16] MEDS: OXYCODONE PO PRN ×2 (16:26→22:36)
[2018-11-16] MEDS: PRAVACHOL PO SCH (21:10)
[2018-11-16] MEDS: LEVEMIR SUBCUT SCH (21:10)
[2018-11-17] MEDS: ASPIRIN EC PO SCH (09:14)
[2018-11-17] MEDS: HYDROCHLOROTHIAZIDE PO SCH (09:15)
[2018-11-17] MEDS: COZAAR PO SCH (09:15)
[2018-11-17] MEDS: NORVASC PO SCH (09:15)
[2018-11-17] MEDS: HUMULIN R SUBCUT SCH ×3 (09:16→17:38)
[2018-11-17] MEDS: ROCEPHIN 2 GM in SODIUM CHLORIDE 50 ML IV SCH (09:16)
[2018-11-17] MEDS: LOVENOX SUBCUT SCH (09:17)
[2018-11-17 17:28] VITALS: BP 155/63; TEMP 98.4
[2018-11-18] MEDS ORDERED: D5W IV SCH (09:00)
[2018-11-18] MEDS ORDERED: INSULIN GLARGINE HUM REC ANLOG 15 UNIT SQ SCH (09:00)
[2018-11-18] MEDS ORDERED: ROCEPHIN IV SCH (09:00)
[2018-11-18] MEDS ORDERED: [UNRECOGNIZED DRUG - OTHER] SQ SCH (09:00)
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
--- NOTE | 2018-12-10 13:53 | PN ---
DATE OF SERVICE: 11/15/18 SUBJECTIVE: Vital signs of this day were temperature 97.9, pulse 67, blood pressure 146/67, respiratory rate 18, O2 saturation 95% on room air. On this date her hgb was 11.3, hct 35.9, plt count 3161, sodium 136.8, BUN 32.4, creatinine 1.32, LFT within normal limits. She did have some mild drainage to her between her third and fourth toe. She did have some redness to her left foot, there was no warmth. She did have some decreased pain to that left lower extremity much improved compared to admission. She is feeling better over all LUNGS: Clear HEART: regular rate and rhythm We will continue to monitor closely. Further orders and recommendation per Dr. Klein. She remains on IV antibiotics at this time as well as anticoagulation with Lovenox. YONG
--- NOTE | 2018-12-10 14:54 | DS ---
DATE OF SERVICE: 11/17/18 DISCHARGE DIAGNOSES: 1. Proteus Mirabilis left lower extremity. 2. Cellulitis improved with IV Rocephin. 3. Left lower extremity pain. 4. Diabetes mellitus type 2 with peripheral vascular disease 5. History of fracture of the left tibial plateau displaced bicondylar fracture with hardware to the left lower extremity. 6. Dyslipidemia 7. Hypertension 8. Left lower extremity edema 9. Vitamin D deficiency HISTORY OF PRESENT ILLNESS/HOSPITAL COURSE: The patient is a pleasant 68-year-old patient of Dr. Kleni who initially presented to the office on November 08, 2018, who had an inpatient stay for left lower extremity cellulitis. The wound culture did grow out proteus mirabilis. She was started on Rocephin intravenously, transferred to Transitional Care Unit , continued on the Rocephin IV and Epsom Salt. She has done well with this. The left lower extremity cellulitis has continued to improve. The plan is to discharge the patient home on Rocephin intravenously 2 gm IV daily for 6 days starting November 18, 2018 at [facility]. A prescription was given to the patient. She would continue all other home medications and she will followup with Dr. Klein on Monday, November 23, 2018 and she was to call the office on November 19 for an appointment time. She was instructed to check blood sugars regularly and continue previous insulin regimen as excellent blood sugar control aids in resolving of the infection. She was instructed to keep bilateral lower extremities elevated above the level of the heart. PERTINENT LABS AND DIAGNOSTIC TESTING: White count on 11/15/18 normal, hemoglobin 11.3, hematocrit 35.9, platelet count normal at 316. Sodium 136.8, BUN 32.4, creatinine 1.32. GFR 40. Vital signs at discharge: Temperature 98.4, pulse rate 77, blood pressure 155/ 63, respiratory rate 18, 02 sat 96% on room air. DISCHARGE DIET: Strict ADA diet DISCHARGE ACTIVITY LEVEL: As tolerated. FOLLOWUP APPOINTMENT: As previously instructed. She is going to followup November [address] Klein. She will continue IV Rocephin as outpatient as previously instructed. Further labs and diagnostic testing will be discussed at that November 23 appointment. TIME SPENT: GREATER THAN 30 MINUTES MTDD
== END 2018-11-17 19:27 | disposition home or self-care (01) | DRG 603 ==
LOC: MEDSURG B 16:49
PROVIDERS: ADMIT General Practice; ATTEND General Practice
DX: L03.116 Cellulitis of left lower limb (principal); E11.51 Type 2 diabetes mellitus with diabetic peripheral angiopathy without gangrene; E78.5 Hyperlipidemia, unspecified; E55.9 Vitamin D deficiency, unspecified; I10 Essential (primary) hypertension; R60.0 Localized edema; M79.662 Pain in left lower leg; Z79.4 Long term (current) use of insulin
CPT/HCPCS: 36415; 80053; 82962; 85025; 97802